=== PATIENT | female | born 1960 | race Caucasian/White ===

== ENCOUNTER → 2018-01-28 15:12 | Outpatient (CLI) | payer MEDICARE ==
[2013-05-06 07:13] VITALS: BMI 22.5
[~2018-01-28 15:12] MED LIST: ASPIRIN EC81 MG PO; BUTALB-APAP-CA1 EACH PO; IMITREX50 MG PO; LEVAQUIN500 MG PO; MIRAPEX0.25 MG PO; NORCO 10/325 TA1 TA1; NORCO 7.5-3251 EACH PO; NYSTATIN ORAL SU5 ML PO; OXYBUTYNIN CHLOR5 MG PO; PAXIL10 MG; PEPCID AC20 MG PO; PHENAZOPYRIDIN100 MG PO; PLAVIX75 MG PO; PROTONIX40 MG PO; SOMA350 MG PO; TOPAMAX100 MG PO; VERELAN120 MG PO; VISTARIL25 MG PO; XANAX0.5 MG PO; XANAX1 MG PO; ZOFRAN4 MG PO
== END | disposition home or self-care (01) ==
LOC: D.MRI 15:12
DX: Z86.69 Personal history of other diseases of the nervous system and sense organs (principal)

== ENCOUNTER 2018-03-05 11:14 | Emergency (ER) | payer MEDICARE ==
[~2018-03-05] VITALS: Ht 157.5 cm; Wt 66.8 kg
[~2018-03-05 11:14] MED LIST changes: -BUTALB-APAP-CA1 EACH PO; -IMITREX50 MG PO; -LEVAQUIN500 MG PO; -MIRAPEX0.25 MG PO; -NYSTATIN ORAL SU5 ML PO; -OXYBUTYNIN CHLOR5 MG PO; -PEPCID AC20 MG PO; -PHENAZOPYRIDIN100 MG PO; -PROTONIX40 MG PO; -VERELAN120 MG PO; -XANAX1 MG PO; -ZOFRAN4 MG PO
[2018-03-05 11:24] VITALS: Ht 157.5 cm; Wt 66.8 kg
[2018-03-05] MEDS ORDERED: XANAX1 MG PO (11:32)
[2018-03-05] MEDS ORDERED: VERELAN120 MG PO (11:32)
[2018-03-05] MEDS ORDERED: OXYBUTYNIN CHLOR5 MG PO (11:33)
[2018-03-05] MEDS ORDERED: MIRAPEX0.25 MG PO (11:33)
[2018-03-05] MEDS ORDERED: PEPCID AC20 MG PO (11:34)
[2018-03-05] MEDS ORDERED: PROTONIX40 MG PO (11:34)
[2018-03-05] MEDS ORDERED: BUTALB-APAP-CA1 EACH PO (11:35)
[2018-03-05] MEDS ORDERED: ZOFRAN4 MG PO (11:35)
[2018-03-05] MEDS ORDERED: NYSTATIN ORAL SU5 ML PO (11:36)
[2018-03-05] MEDS ORDERED: IMITREX50 MG PO (11:36)
[2018-03-05 12:05] LABS: BASOPHILS 0.2 % (0-2); EOSINOPHILS 1.2 % (0-7); HEMATOCRIT 38.6 % (36.0-48.0); HEMOGLOBIN 12.9 g/dL (12-16); IMMATURE GRANULOCYTES 0.3 % (0-5); MCH 29.2 pg (26.0-34.0); MCHC 33.4 g/dL (31.0-37.0); MCV 87.3 fL (80.0-100.0); MEAN PLATELET VOLUME 10.5 fL (7.4-10.4); MONOCYTES 9.7 % (2-11); NEUTROPHILS 75.6 % (40-80); RBC 4.42 10x6/uL (4.00-5.40); RDW 13.1 % (11.5-14.5); WBC 11.2 10x3/uL (4.8-10.8)
[2018-03-05 12:13] LABS: PLATELET COUNT 341 10x3/uL (130-400)
[2018-03-05 12:30] LABS: ALBUMIN 3.9 g/dL (3.4-5.0); ALKALINE PHOSPHATASE 126 U/L (46-116); ALT (SGPT) 46 U/L (10-68); AMYLASE - SERUM 51 U/L (25-115); BILIRUBIN - TOTAL 0.25 mg/dL (0.2-1.3); CALC OSMOLALITY 275 mosm/kg (275-300); CALCIUM 9.2 mg/dL (8.5-10.1); CARBON DIOXIDE 29.6 mmol/L (21.0-32.0); CHLORIDE - SERUM 102 mmol/L (98-107); CREATININE - SERUM 0.8 mg/dL (0.6-1.3); GLUCOSE 79 mg/dL (74-106); LIPASE 162 U/L (73-393); POTASSIUM - SERUM 3.7 mmol/L (3.5-5.1); PROTEIN - SERUM 7.7 g/dL (6.4-8.2); SODIUM 138 mmol/L (136-145); UREA NITROGEN 14 mg/dL (7-18); eGFR NON AFRICAN AMERICAN 78 mL/min (90-120)
[2018-03-05 12:41] LABS: APPEARANCE CLOUDY (CLEAR); COLOR YELLOW (YELLOW); SPECIFIC GRAVITY 1.015 (1.005-1.020)
[2018-03-05 12:42] LABS: BILIRUBIN NEGATIVE (NEGATIVE); GLUCOSE NEGATIVE (NEGATIVE); KETONE NEGATIVE (NEGATIVE); NITRITE POSITIVE (NEGATIVE); PROTEIN 1+ mg/dL (NEGATIVE); UROBILINOGEN NORMAL (NORMAL)
[2018-03-05 12:43] LABS: WHITE CELLS - URINE >50 /hpf (0-5)
[2018-03-05 12:44] LABS: BACTERIA MANY /hpf (NONE SEEN)
[2018-03-05 12:45] LABS: EPITHELIAL CELLS OCC /hpf (0-5); MUCUS <1+ /lpf (NONE SEEN)
[2018-03-05] MEDS ORDERED: PHENAZOPYRIDIN100 MG PO (14:51)
[2018-03-05] MEDS ORDERED: LEVAQUIN500 MG PO (14:51)
[2018-03-05 15:07] VITALS: BP 112/59
== END 2018-03-05 15:08 | disposition home or self-care (01) ==
LOC: D.ER 11:14
PROVIDERS: Family Medicine
DX: N39.0 Urinary tract infection, site not specified (principal); R35.0 Frequency of micturition; K21.9 Gastro-esophageal reflux disease without esophagitis

== ENCOUNTER 2019-03-30 10:30 | Outpatient (CLI) | payer MEDICARE ==
[2018-03-05 11:24] VITALS: BMI 26.9
[~2019-03-30 10:30] MED LIST changes: +BUTALB-APAP-CA1 EACH PO; +IMITREX50 MG PO; +LEVAQUIN500 MG PO; +MIRAPEX0.25 MG PO; +NYSTATIN ORAL SU5 ML PO; +OXYBUTYNIN CHLOR5 MG PO; +PEPCID AC20 MG PO; +PHENAZOPYRIDIN100 MG PO; +PROTONIX40 MG PO; +VERELAN120 MG PO; +XANAX1 MG PO; +ZOFRAN4 MG PO
== END 2019-03-30 11:00 | disposition home or self-care (01) ==
LOC: D.MAMMO 10:30
PROVIDERS: ATTEND Family Medicine
DX: R92.8 Other abnormal and inconclusive findings on diagnostic imaging of breast (principal)

== ENCOUNTER → 2019-09-23 18:36 | Outpatient (CLI) | payer MEDICARE ==
[2018-03-05 11:24] VITALS: BMI 26.9
== END | disposition home or self-care (01) ==
LOC: D.MAMMO 09:00
PROVIDERS: ATTEND Family Medicine
DX: R92.8 Other abnormal and inconclusive findings on diagnostic imaging of breast (principal)